=== PATIENT | male | born 1975 | race Caucasian/White ===

== ENCOUNTER → 2019-12-16 14:47 | Outpatient (CLI) | payer OTHER, SELFPAY ==
--- NOTE | 2019-12-16 14:58 | EKG12_ITS ---
Test Reason : PRE OP Blood Pressure : / mmHG Vent. Rate : 070 BPM Atrial Rate : 070 BPM P-R Int : 184 ms QRS Dur : 102 ms QT Int : 376 ms P-R-T Axes : 008 -31 073 degrees QTc Int : 406 ms Normal sinus rhythm Left axis deviation Low voltage QRS (Limb Leads) Abnormal ECG Confirmed by JENNIE HOWELL, RUTHY ([id number]), photograph editor ARTHUR DRUMMOND ([id number]) on 12/17/2019 1:07:14 PM Referred By: Ulises Chandler Confirmed By:RUTHY SCHNEIDER MD
== END ==
LOC: CVS 14:56
PROVIDERS: PCP Family Medicine; Referring Provider Orthopaedic Surgery; Visit Provider Orthopaedic Surgery
DX: Z01.810 Encounter for preprocedural cardiovascular examination (principal)
CPT/HCPCS: 93005

== ENCOUNTER → 2020-01-02 14:06 | Outpatient (CLI) | payer OTHER, SELFPAY | LOC: PSN 14:06 | PROVIDERS: PCP Family Medicine; Referring Provider Family Medicine; Visit Provider Family Medicine | DX: I49.3 Ventricular premature depolarization (principal) | CPT/HCPCS: 93225; 93226 ==

== ENCOUNTER → 2020-02-09 11:05 | Outpatient (CLI) | payer OTHER, SELFPAY ==
--- NOTE | 2020-02-09 11:07 | RAD_ITS ---
STUDY: X-RAY - LUMBAR SPINE REASON FOR EXAM: Male, 44 years old. LBP TECHNIQUE: 2 view(s) of the lumbar spine were obtained. COMPARISON: None FINDINGS: There is an exaggerated lumbar lordosis. There is no substantial scoliosis. There is a normal alignment of the vertebrae. There is mild multilevel endplate spondylosis of the lumbar vertebrae. Disc space narrowing L5-S1. There is a small focus of hyperdensity within the right upper quadrant which could be due to represent bowel content and no per possible renal stones. This visualize atherosclerotic disease of the aorta projected over the lateral view. RAD/Lumbar Spine 2 or 3 Views IMPRESSION: Exaggerated physiologic lordosis. Degenerative change. Calcific density in the right upper quadrant which may represent bowel contents versus a possible stone in the right kidney measuring up to 1.3 cm. Recommend correlation with any history of renal colic. Electronically Signed: Mela Benton MD at 4:04 EDT Tel , Service support ,
== END ==
LOC: RAD 11:06
PROVIDERS: Referring Provider Anesthesiology Pain Medicine; Visit Provider Anesthesiology Pain Medicine
DX: M54.9 Dorsalgia, unspecified (principal)
CPT/HCPCS: 72100

== ENCOUNTER → 2020-02-09 14:08 | Outpatient (CLI) | payer OTHER, SELFPAY ==
[2020-02-09 15:02] LABS: Amphetamine Urine VISTA NEGATIVE (<1000 ng/mL); Barbiturate Urine VISTA NEGATIVE (< 200 ng/mL); Benzodiazepine Urine VISTA NEGATIVE (< 200 ng/mL); Cocaine Urine VISTA NEGATIVE (< 300 ng/mL); Ecstacy Urine VISTA NEGATIVE (< 500 ng/mL); Methadone Urine VISTA NEGATIVE (< 300 ng/mL); PCP Urine VISTA NEGATIVE (< 25 ng/mL); THC Urine VISTA NEGATIVE (< 50 ng/mL); Vista UDS pH Range 5
== END ==
PROVIDERS: Referring Provider Anesthesiology Pain Medicine; Visit Provider Anesthesiology Pain Medicine
DX: F11.20 Opioid dependence, uncomplicated (principal)
CPT/HCPCS: 80307

== ENCOUNTER → 2020-03-03 11:10 | Outpatient (CLI) | payer OTHER, SELFPAY ==
--- NOTE | 2020-03-03 11:50 | RAD_ITS ---
STUDY: X-RAY CHEST REASON FOR EXAM: Male, 44 years old. PRE-OP TOTAL KNEE REPLACEMENT TECHNIQUE: PA and lateral views of the chest. COMPARISON: None. FINDINGS: The lungs are clear and expanded. There is no demonstrated pleural abnormality. Normal size heart. Normal mediastinum and itzel. Normal visualized pulmonary arteries. Normal visualized aortic arch and descending thoracic aorta. Normal visualized thoracic spine. Normal visualized ribs, clavicles, and shoulders. There is no demonstrated abnormality of the visualized soft tissue structures of the upper abdomen. RAD/Chest PA and Lateral IMPRESSION: Normal x-ray examination of the chest. Electronically Signed: Bassam Barriga, at 15:43 EST , Service support ,
[2020-03-03 12:04] LABS: Hematocrit 47.8 % (40-54); Hemoglobin 16.4 g/dL (13.0-16.5); Mean Corp Hgb Conc 34.3 g/dL (32-36); Mean Corpuscular Hgb 30.2 pg (27.0-32.0); Mean Platelet Vol. 11.5 fl (6.2-12.0); Platelet Count 197 K/mm3 (150-450); RBC Distribution Width CV 12.5 % (11.6-14.6); RBC Distribution Width SD 40.6 fl (35.1-43.9); Red Blood Count 5.43 M/mm3 (4.6-6.2); White Blood Count 9.4 K/mm3 (4.4-11.0)
[2020-03-03 12:38] LABS: Anion Gap 7 (5-15); BUN 16 mg/dL (7-18); BUN/Creat Ratio 19.2 RATIO (10-20); Calcium,Total 8.9 mg/dL (8.5-10.1); Chloride 105 mmol/L (98-107); Creatinine, Serum 0.83 mg/dL (0.70-1.30); EST Glomerular Filtration Rate 107 mL/min (>60); Est Glom Filt Rate - Afr Amer 129 mL/min (>60); Glucose 133 mg/dL (74-106); Potassium 3.9 mmol/L (3.5-5.1); Sodium Level 135 mmol/L (136-145)
== END ==
LOC: LAB 11:13
PROVIDERS: Visit Provider Physician Assistant
DX: Z01.812 Encounter for preprocedural laboratory examination (principal); Z01.811 Encounter for preprocedural respiratory examination; M17.31 Unilateral post-traumatic osteoarthritis, right knee; I10 Essential (primary) hypertension
CPT/HCPCS: 36415; 71046; 80048; 83036; 85027

== ENCOUNTER → 2020-03-08 | Outpatient (CLI) | payer OTHER, SELFPAY | END | disposition home or self-care (01) | LOC: LABSPEC 10:17 | PROVIDERS: Referring Provider Physician Assistant; Visit Provider Physician Assistant | DX: Z20.828 Contact with and (suspected) exposure to other viral communicable diseases (principal) | CPT/HCPCS: 87635; C9803; U0003 ==

== ENCOUNTER → 2020-03-12 | Outpatient (CLI) | payer OTHER, SELFPAY ==
--- NOTE | 2020-03-12 08:30 | KNEE_PTH ---
PATIENT: JOSE LUIS CLARKE LOC: [facility] U#:[id number] AGE/SX: 44/M ROOM: RE03/12/[address]: Dr. Ulises Chandler MD : [id number] BED: DIS: 03/12/2020 SPEC #: [id number] RECD: 03/12/20 15:20 STATUS: KOJO RELauren #: [id number] ENRIQUE: 03/12/20 08:[address]: Ulises Chandler DEPT: SURGICAL PATHOLOGY RECD BY: July Taylor ENTERED: 03/15/20 07:30 SP TYPE: TOTAL KNEE OTHR DR: No Primary Care Phys [facility] Tissues: Knee, NOS Procedures: Decalcification bone/plaque Surgery Specimen Level IV HEADER OPERATION: Right total knee arthroplasty PRE-OP DIAGNOSIS: Right knee severe posttraumatic arthritis TISSUE SUBMITTED: Right knee bone MICROSCOPIC DIAGNOSIS Right knee bone, total knee arthroplasty: Pieces of bone with degenerative osteoarthritic changes. Fibroadipose tissue, fibroconnective tissue and reactive synovial tissue. Focal changes consistent with pseudogout. SJ:kayleigh 03/19/20 MICROSCOPIC DESCRIPTION Slides are reviewed. GROSS DESCRIPTION Received is one container designated bone and soft tissue right knee. The specimen consists of multiple fragments of carranza-yellow bone measuring in aggregate 17 x 15 x 2 cm. Also in the specimen container are multiple fragments of yellow-white soft tissue measuring in aggregate 6.5 x 5 x 2.2 cm. A number of bony fragments contain articular surfaces consistent with tibial plateau and femoral condyle and displaying prominent osteophyte formation, eburnation, and bone erosion. Filter Tank Tender Helper Head sections are submitted in three cassettes as follows: 1 - soft tissue, 2&3 - bone after decalcification. / AM:kayleigh 03/15/20 TC:5 [facility]: [id number], [id number]
== END | disposition home or self-care (01) ==
LOC: LABSPEC 15:34
PROVIDERS: Visit Provider Orthopaedic Surgery
DX: M17.31 Unilateral post-traumatic osteoarthritis, right knee (principal)
CPT/HCPCS: 88305; 88311

== ENCOUNTER → 2023-08-01 | Outpatient (CLI) | payer BC, SELFPAY ==
--- NOTE | 2023-08-01 15:23 | RAD_ITS ---
STUDY: X-RAY - ABDOMEN/PELVIS REASON FOR EXAM: Male, 48 years old. Right flank pain, r/o nephrolithiasis TECHNIQUE: Single AP view of the abdomen / pelvis. COMPARISON: None. FINDINGS: Normal visualized lung bases. There is an unremarkable bowel gas pattern. Multiple calcific opacities overlying the right kidney consistent with right renal stones. No definite ureteral stone. Normal soft tissue structures. Normal visualized osseous structures. RAD/Abdomen Single View IMPRESSION: Suspect multiple right renal stones. Electronically Signed: Jeff Hicks MD at 22:45 EDT ,
--- NOTE | 2023-08-01 15:23 | RAD_ITS ---
STUDY: X-RAY - LEFT SHOULDER REASON FOR EXAM: Male, 48 years old. Left shoulder pain TECHNIQUE: 4 view(s) of the shoulder. COMPARISON: None. FINDINGS: There is mild degenerative arthrosis of the glenohumeral articulation. Normal acromioclavicular joint. Normal acromion. Normal humeral head and visualized proximal humerus. The soft tissue structures are unremarkable. Normal visualized pulmonary apex. RAD/Shoulder min 2 Views IMPRESSION: Mild glenohumeral joint arthrosis. Electronically Signed: Jeff Hicks MD at 22:44 EDT ,
== END | disposition home or self-care (01) ==
PROVIDERS: PCP Family Medicine; Referring Provider Family Medicine; Visit Provider Family Medicine
DX: M25.512 Pain in left shoulder (principal); R10.9 Unspecified abdominal pain
CPT/HCPCS: 73030; 74018

== ENCOUNTER → 2024-08-21 | Outpatient (CLI) | payer BC, SELFPAY | END | disposition home or self-care (01) | PROVIDERS: PCP Family Medicine; Referring Provider Family Medicine; Visit Provider Family Medicine | DX: Z12.11 Encounter for screening for malignant neoplasm of colon (principal) ==

== ENCOUNTER → 2024-08-22 | Outpatient (CLI) | payer BC, SELFPAY ==
[2024-08-22 15:33] LABS: Hematocrit 46.4 % (40-54); Hemoglobin 15.9 g/dL (13.0-16.5); Mean Corp Hgb Conc 34.3 g/dL (32-36); Mean Corpuscular Hgb 29.9 pg (27.0-32.0); Mean Corpuscular Volume 87.4 fL (80-94); Mean Platelet Vol. 11.9 fl (6.2-12.0); Platelet Count 222 K/mm3 (150-450); RBC Distribution Width CV 12.8 % (11.6-14.6); RBC Distribution Width SD 40.8 fl (35.1-43.9); Red Blood Count 5.31 M/mm3 (4.6-6.2); White Blood Count 8.4 K/mm3 (4.4-11.0)
[2024-08-22 16:16] LABS: ALB/GLOB Ratio 1.3 RATIO (0.9-2.4); AST(SGOT) 33 U/L (<=37); Alanine Aminotransfer ALT/SGPT 49 U/L (<=46); Albumin, Serum 4.3 g/dL (3.5-5.0); Alkaline Phosphatase 115 U/L (40-129); Anion Gap 14 (5-15); BUN 14 mg/dL (4-19); BUN/Creat Ratio 17.8 RATIO (10-20); Calcium,Total 9.4 mg/dL (7.6-11.0); Carbon Dioxide 21.5 mmol/L (21.0-32.0); Chloride 102 mmol/L (98-108); Cholesterol 186 mg/dL (<=200); Creatinine, Serum 0.81 mg/dL (0.70-1.20); EST Glomerular Filtration Rate 109 (>60); Globulin 3.3 g/dL (2.2-4.2); Glucose 173 mg/dL (70-99); High Density Lipoprotein 43 mg/dL; Low Density Lipoprotein Calc. 119 mg/dL; Potassium 3.9 mmol/L (3.3-5.1); Protein, Total 7.6 g/dL (5.9-8.4); Sodium Level 138 mmol/L (133-145); Total Bilirubin 0.55 mg/dL (0.00-1.30); Triglycerides 118 mg/dL; Very Low Density Lipoprotein 24 mg/dL (5-40); cholesterol:hdl ratio screen 4.29
[2024-08-25 22:09] LABS: Hemoglobin A1c 7.6 % (<=5.6)
== END | disposition home or self-care (01) ==
LOC: MTLAB 11:06
PROVIDERS: PCP Family Medicine; Referring Provider Family Medicine; Visit Provider Family Medicine
DX: Z01.89 Encounter for other specified special examinations (principal); Z13.1 Encounter for screening for diabetes mellitus
CPT/HCPCS: 36415; 80053; 80061; 83036; 85027

== ENCOUNTER → 2024-10-02 | Outpatient (CLI) | payer SELFPAY | END | disposition home or self-care (01) | PROVIDERS: PCP Family Medicine; Referring Provider Surgery Plastic and Reconstructive Surgery; Visit Provider Surgery Plastic and Reconstructive Surgery | DX: L02.91 Cutaneous abscess, unspecified (principal) | CPT/HCPCS: 87070; 87075; 87077; 87186; 87205 ==

== ENCOUNTER → 2024-10-09 | Outpatient (CLI) | payer SELFPAY | END | disposition home or self-care (01) | LOC: LAB 15:50 | PROVIDERS: PCP Family Medicine; Referring Provider Surgery Plastic and Reconstructive Surgery; Visit Provider Surgery Plastic and Reconstructive Surgery | DX: T81.41XA Infection following a procedure, superficial incisional surgical site, initial encounter (principal); X58.XXXA Exposure to other specified factors, initial encounter | CPT/HCPCS: 87070; 87075; 87186; 87205 ==

== ENCOUNTER → 2025-01-21 | Outpatient (CLI) | payer BC, SELFPAY ==
[2025-01-21 16:30] LABS: Creatinine, Urine (random) 139.00 mg/dL (39.00-259.00); Microalbumin,Random Urine 25.2 mg/L (<20 mg/L)
[2025-01-28 11:08] LABS: Testosterone, % Free 3.22 % (1.50-4.20); Testosterone, Free 12.88 ng/dL (5.00-21.00)
== END | disposition home or self-care (01) ==
LOC: MTLAB 12:44
PROVIDERS: PCP Family Medicine; Referring Provider Family Medicine; Visit Provider Family Medicine
DX: E11.9 Type 2 diabetes mellitus without complications (principal); N62 Hypertrophy of breast
CPT/HCPCS: 36415; 82043; 82570; 83036; 84402; 84403